=== PATIENT | male | born 1965 | race Caucasian/White ===

== ENCOUNTER 2017-09-05 13:03 | Emergency (ER) | payer OTHER ==
[~2017-09-05] VITALS: Ht 177.8 cm; Wt 82.0 kg
[2017-09-05 13:10] VITALS: BP 137/79; PULSE 92; RESP 16; TEMP 98.4; O2SAT 96
[2017-09-05] MEDS ORDERED: IBUP1TAB7 PO (14:28)
[2017-09-05] MEDS ORDERED: ROBA750T PO (14:29)
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
== END 2017-09-05 14:56 | disposition home or self-care (01) ==
LOC: PHEFT 13:03
DX: S39.012A Strain of muscle, fascia and tendon of lower back, initial encounter (principal); V49.50XA Passenger injured in collision with unspecified motor vehicles in traffic accident, initial encounter; Z88.0 Allergy status to penicillin
CPT/HCPCS: 99283